=== PATIENT | female | born 1970 | race Caucasian/White ===

== ENCOUNTER 2021-07-29 12:47 | Outpatient (CLI) | payer BC | END 2021-07-29 12:48 | disposition home or self-care (01) | LOC: CSHMRI 12:47 | PROVIDERS: ATTEND Orthopaedic Surgery | DX: M25.512 Pain in left shoulder (principal); M75.112 Incomplete rotator cuff tear or rupture of left shoulder, not specified as traumatic; M89.8X1 Other specified disorders of bone, shoulder ==